=== PATIENT | female | born 1945 | race Caucasian/White ===

== ENCOUNTER → 2017-01-12 | Outpatient (CLI) | payer MEDICARE, BC ==
[~2017-01-12] MED LIST: ABILIFY10 MG PO; ABILIFY20 MG PO; AMOX TR-K CLV 21 TAB; AMOXICILLIN PO; BENTYL10 MG PO; BENTYL20 M1 PO; BENTYL20 MG PO; CIPRO PO; CIPRO250 MG PO; DEPAKOTE PO; FANAPT12 MG PO; HALDOL PO; IMODIUM A-D2 M1 PO; LASIX20 MG PO; LISINOPRIL20 MG PO; LORATADINE PO; LURASIDONE PO; MACROBID 100 M100 MG PO; OMEPRAZOLE40 MG PO; PERCOCET5/325 PO; PHENERGAN25 M1 PO; PHENERGAN25 MG PO; PREDNISONE PO; PRILOSEC PO; RISPERDAL0.25 MG; SAPHRIS10 MG SL; SEROQUEL PO; SERTRALINE HCL50 MG PO; SIMVASTATIN40 MG PO; SINGULAIR PO; VENTOLIN HFA INH; ZESTRIL10 M2 PO; ZITHROMAX1 G/PKT PO; ZOFRAN PO
--- NOTE | ~2017-01-12 | MY11 ---
[facility] A Service of [facility] RADIOLOGY TEXT RESULTS PATIENT: JENNA PLAZA LOCATION: [facility] : [birth year] UNIT #: [id number] AGE: [address]: Marc Dow MD SEX: F ORDER DR: [id number] [place] [id number] O MR#: [id number] Acc #: [id number] NAME: JENNA PLAZA : 1945 SEX: F STUDY DATE/TIME: 01/12/2017 13:36 UNIT: [facility] ROOM: STUDY DESCRIPTION: MY Mammogram Screening [facility] Attending Physician: Marc Dow M.D. Referring Physician: Marc Dow M.D. Ordering Physician: Marc Dow M.D. Primary Care Physician: Marc oDw M.D. MEDICAL IMAGING REPORT This report is preliminary unless electronic signature is present. EXAM Digital screening mammogram 01/12/2017 HISTORY 71-year-old female with positive family history, mother postmenopausal. Previous right breast biopsy. FINDINGS Digital imaging of each breast was completed utilizing screening protocol. Review includes FDA-approved CAD device. Breast parenchyma is fatty replaced. There is mild subareolar duct prominence and an occasional benign nodule in each breast. I see no suspicious mass. There are no interval occurring microcalcifications and no architectural deformity. IMPRESSION Negative mammogram. Annual screening recommended. BIRADS 1 Patients over the age of 40 are entered into a reminder system with target due date for the next mammogram. A result letter will also be sent to the patient. BIRADS: 1 - Negative Dictated by... Ac Vera M.D. THIS IS AN ELECTRONICALLY VERIFIED REPORT Ac Vera M.D. at 01/13/2017 8:08 AM Kirstin TD: 01/12/2017 16:24 JOB #: [id number] [facility] A Service [facility] RADIOLOGY TEXT RESULTS PATIENT: JENNA PLAZA LOCATION: [facility] #: [id number] : [birth year] UNIT #: [id number] AGE: [address]: Marc Dow MD SEX: F ORDER DR: MEDICAL IMAGING REPORT Page 1 of 1
== END | disposition home or self-care (01) ==
LOC: SMAM 12:55
DX: Z12.31 Encounter for screening mammogram for malignant neoplasm of breast (principal); Z80.3 Family history of malignant neoplasm of breast; Z98.890 Other specified postprocedural states
CPT/HCPCS: G0202